=== PATIENT | female | born 1950 | race Caucasian/White ===

== ENCOUNTER 2023-11-18 00:34 | Emergency (ER) | payer MEDICAID ==
[~2023-11-18] VITALS: Ht 165.1 cm; Wt 88.0 kg
[2023-11-18] MEDS ORDERED: MORPHINE SULFATE 4 MG/1 ML DISP.SYRIN ONE (01:13)
[2023-11-18] MEDS ORDERED: ONDANSETRON 4 MG/2 ML VIAL ONE (01:13)
[2023-11-18 01:14] LABS: BASOPHILS # (AUTO) 0.1 K/UL (0.0-0.2); BASOPHILS % (AUTO) 0.6 % (0.0-2.0); EOSINOPHILS % (AUTO) 0.3 % (0.0-7.0); HEMATOCRIT 41.3 % (31.2-41.9); HEMOGLOBIN 14.1 g/dL (10.9-14.3); LYMPHOCYTES # (AUTO) 2.1 K/uL (0.8-4.8); LYMPHOCYTES % (AUTO) 19.1 % (20.5-51.5); MEAN CORPUSCULAR HEMOGLOBIN 29.8 uug (24.7-32.8); MEAN CORPUSCULAR HGB CONC 34 g/dL (32.3-35.6); MEAN CORPUSCULAR VOLUME 86.8 fL (75.5-95.3); MONOCYTES % (AUTO) 9.4 % (0.0-11.0); NEUTROPHILS # (AUTO) 7.8 K/uL (1.8-8.9); NEUTROPHILS % (AUTO) 70.6 % (38.5-71.5); PLATELET COUNT (AUTO) 272 K/uL (179-408); RED BLOOD CELL COUNT(AUTO) 4.75 MIL/uL (3.63-4.92); RED CELL DISTRIBUTION WIDTH 13.5 % (12.3-17.7)
[2023-11-18] MEDS: ONDANSETRON 4 MG/2 ML VIAL IV ONE (01:15)
[2023-11-18] MEDS: MORPHINE SULFATE 4 MG/1 ML DISP.SYRIN IV ONE (01:17)
[2023-11-18] MEDS: IV NORMAL SALINE 1000 ML BAG IV ONE (01:17)
[2023-11-18 01:22] LABS: DIFFERENTIAL COMMENT 1
[2023-11-18 01:34] LABS: CALCIUM 9.4 mg/dL (8.5-10.1); CREATININE 0.8 mg/dL (0.6-1.3); POTASSIUM 3.3 mmol/L (3.5-5.1)
[2023-11-18 01:40] LABS: ALBUMIN 4.1 g/dL (3.4-5.0); BILIRUBIN,TOTAL 0.6 mg/dL (0.2-1.0)
[2023-11-18] MEDS ORDERED: LIDOCAINE 5% PATCH TD ONE (02:20)
[2023-11-18] MEDS ORDERED: KETOROLAC TROMETHAMINE 15 MG INJ ONE (02:20)
[2023-11-18] MEDS: LIDOCAINE 5% PATCH TD ONE (02:21)
[2023-11-18] MEDS: KETOROLAC TROMETHAMINE 15 MG INJ IVP ONE (02:22)
[2023-11-18] MEDS ORDERED: HYDROCODONE/APAP 10-325 MG TABLET ONE (04:48)
[2023-11-18] MEDS: HYDROCODONE/APAP 10-325 MG TABLET PO ONE (04:49)
[2023-11-18] MEDS ORDERED: ACET-2605 PO (05:47)
[2023-11-18] MEDS ORDERED: CYCL5TAB PO (05:47)
[2023-11-18 08:25] VITALS: BP 165/95; O2SAT 94
== END 2023-11-18 06:45 | disposition home or self-care (01) ==
LOC: ER 00:37 → EDBD 00:37 → ER 06:45
DX: M79.601 Pain in right arm (principal); Z79.899 Other long term (current) drug therapy
CPT/HCPCS: 99285; 96374; 93971; 96375; 71045; 96361; 80053; 82550; 85025; 84484 ×2; 36415; 73030; 73080; J1885; J2405; J2270; J7040; A4606; A4663